=== PATIENT | male | born 1950 | race Caucasian/White ===

== ENCOUNTER 2021-04-01 06:20 | Observation (INO) | payer OTHER ==
[2021-03-30 10:14] LABS: HEMATOCRIT 39.4 % (42-54); LYMPHOCYTES % (AUTO) 34.9 % (21.0-51.0); MEAN CORPUSCULAR HEMOGLOBIN 30.6 pg (27.0-33.0); MEAN CORPUSCULAR HGB CONC 33.8 g/dL (32.0-36.0); MEAN CORPUSCULAR VOLUME 90.8 fL (79-99); MONOCYTES % (AUTO) 8.4 % (3.0-13.0); NEUTROPHILS % (AUTO) 50.3 % (40.0-77.0); PLATELET COUNT (AUTO) 279 K/uL (130-400); RED BLOOD CELL COUNT(AUTO) 4.34 MIL/uL (4.50-6.20); RED CELL DISTRIBUTION WIDTH 13.8 % (11.0-15.5); WHITE BLOOD COUNT (AUTO) 7.3 K/uL (4.8-10.8)
[2021-03-30 10:25] LABS: POTASSIUM 4.1 mmol/L (3.5-5.1)
[2021-03-30 10:26] LABS: INR 0.94 (0.85-1.15); PROTHROMBIN TIME 10.3 SEC (9.6-11.6)
[2021-03-30 10:32] LABS: APPEARANCE,URINE Clear (CLEAR); BILIRUBIN,URINE Negative (NEGATIVE); COLOR,URINE Yellow (YELLOW); GLUCOSE, URINE (UA) Negative (NEGATIVE); KETONES,URINE Negative (NEGATIVE); LEUKOCYTE ESTERASE ,URINE Negative (NEGATIVE); NITRATE,URINE Negative (NEGATIVE); OCCULT BLOOD,URINE Negative (NEGATIVE); PH,URINE 5.5 (5.0-8.0); PROTEIN,URINE Negative (NEGATIVE)
[2021-03-31 12:38] VITALS: BP 175/88
[~2021-04-01] VITALS: Ht 180.3 cm; Wt 108.0 kg
[2021-04-01] VITALS (26 sets, daily range): BP systolic 116–157; BP diastolic 57–81
[~2021-04-01 06:20] MED LIST: AMLO2.5T4 PO; BUDE10.2 IH; TRAM-355 PO
[2021-04-01] MEDS ORDERED: CEFAZOLIN SODIUM 1 GM VIAL ONE ×2 (06:47→09:32)
[2021-04-01] MEDS ORDERED: LACTATED RINGERS 1000ML 1,000 ML IV ONE (06:47)
[2021-04-01] MEDS ORDERED: ALBUTEROL INHALER 90MCG/INH IH ONE (09:09)
[2021-04-01] MEDS ORDERED: TRANEXAMIC ACID 1000MG/10ML ONE ×2 (09:32→14:23)
[2021-04-01] MEDS ORDERED: NEOSTIGMINE 5MG/5ML SYR IV ONE (10:15)
[2021-04-01] MEDS ORDERED: PROPOFOL 10 MG/ML 20ML VIAL IV ONE (10:15)
[2021-04-01] MEDS ORDERED: DEXAMETHASONE SOD PHOSPHATE 10MG/ML 1ML VIAL ONE (10:15)
[2021-04-01] MEDS ORDERED: LIDOCAINE PF 100MG/5ML (2%) SYRINGE 5ML ONE (10:15)
[2021-04-01] MEDS ORDERED: FENTANYL CITRATE PF 50 MCG/1 ML 2ML VIAL ONE (10:15)
[2021-04-01] MEDS ORDERED: MIDAZOLAM HCL 1 MG/ML 2ML VIAL ONE (10:15)
[2021-04-01] MEDS ORDERED: SUCCINYLCHOLINE CHLORIDE 20 MG/ML 10 ML VIAL ONE (10:15)
[2021-04-01] MEDS ORDERED: ONDANSETRON 4MG INJ ONE (10:15)
[2021-04-01] MEDS ORDERED: GLYCOPYRROLATE 1 MG/5 ML SYRINGE ONE (10:15)
[2021-04-01] MEDS ORDERED: ROCURONIUM 10MG/1ML SYR 10 MG/ML ML ONE (10:16)
[2021-04-01] MEDS ORDERED: ROPIVACAINE 0.5% 5MG/ML 30ML IJ ONE (10:35)
[2021-04-01] MEDS ORDERED: PHENYLEPHRINE HCL 10 MG/ML 1ML VIAL IV ONE ×2 (10:53→13:40)
[2021-04-01] MEDS ORDERED: CEFAZOLIN SODIUM 2 GM VIAL IV ONE (11:00)
[2021-04-01] MEDS ORDERED: ATROPINE 1MG SYG IVP ONE (11:36)
[2021-04-01] MEDS ORDERED: EPHEDRINE SULFATE 50 MG/ML AMPULE ONE (13:40)
[2021-04-01] MEDS ORDERED: OXYCODONE HCL 5 MG TAB PO PRN (14:30)
[2021-04-01] MEDS ORDERED: KETOROLAC 15MG/ML VIAL (15MG/ML) IV PRN (14:30)
[2021-04-01] MEDS ORDERED: KCL 20 MEQ ERTAB PO PRN (14:30)
[2021-04-01] MEDS ORDERED: CALCIUM CARB 500MG PO PRN (14:30)
[2021-04-01] MEDS ORDERED: POTASSIUM CHLORIDE 10% ELIXIR 20 MEQ/15 ML UDCUP PO PRN (14:30)
[2021-04-01] MEDS ORDERED: DiphenhydrAMINE HCL 50 MG/ML VIAL IVP PRN (14:30)
[2021-04-01] MEDS ORDERED: LIDOCAINE HCL-MPF 1% 2ML VIAL IV PRN (14:30)
[2021-04-01] MEDS ORDERED: POTASSIUM CHLORIDE 20MEQ/100ML 100 ML IV PRN (14:30)
[2021-04-01] MEDS ORDERED: TRAMADOL HCL 50 MG TABLET PO PRN (14:30)
[2021-04-01] MEDS ORDERED: FE FUMARATE/FA/MV, MIN COMB#15 1 TAB PO PRN (14:30)
[2021-04-01] MEDS ORDERED: TEMAZEPAM 15 MG CAPSULE PO PRN (14:30)
[2021-04-01] MEDS: ACETAMINOPHEN 500 MG TABLET PO SCH ×2 (14:30→21:11)
[2021-04-01] MEDS: 0.9%NACL 1000ML 1,000 ML IV SCH (14:30)
[2021-04-01] MEDS ORDERED: MEPERIDINE-PF 25 MG/ML SYG ONE (15:17)
[2021-04-01] MEDS: ONDANSETRON 4MG INJ IVP PRN ×2 (15:30→19:05)
[2021-04-01] MEDS: CEFAZOLIN SODIUM 1 GM VIAL IVP SCH (19:54)
[2021-04-01] MEDS: CELECOXIB 200 MG CAP PO SCH (20:59)
[2021-04-01] MEDS: PREGABALIN 25 MG CAP PO SCH (20:59)
[2021-04-01] MEDS: FAMOTIDINE 20MG TAB PO SCH (20:59)
[2021-04-01] MEDS ORDERED: ASPIRIN 81 MG EC TAB PO ONE (21:00)
[2021-04-02] MEDS: 0.9%NACL 1000ML 1,000 ML IV SCH (00:30)
[2021-04-02 03:43] LABS: HEMATOCRIT 32.6 % (42-54); MEAN CORPUSCULAR HEMOGLOBIN 30.4 pg (27.0-33.0); MEAN CORPUSCULAR HGB CONC 32.5 g/dL (32.0-36.0); MEAN CORPUSCULAR VOLUME 93.4 fL (79-99); RED BLOOD CELL COUNT(AUTO) 3.49 MIL/uL (4.50-6.20); RED CELL DISTRIBUTION WIDTH 13.9 % (11.0-15.5); WHITE BLOOD COUNT (AUTO) 8.3 K/uL (4.8-10.8)
[2021-04-02 04:20] VITALS: BP 128/67
[2021-04-02] MEDS: CEFAZOLIN SODIUM 1 GM VIAL IVP SCH (04:23)
[2021-04-02] MEDS: ACETAMINOPHEN 500 MG TABLET PO SCH ×3 (04:23→20:23)
[2021-04-02 04:26] LABS: CREATININE 1.2 mg/dL (0.5-1.5); POTASSIUM 4.2 mmol/L (3.5-5.1)
[2021-04-02] MEDS: PREGABALIN 25 MG CAP PO SCH ×2 (07:57→20:22)
[2021-04-02] MEDS: FAMOTIDINE 20MG TAB PO SCH ×2 (07:57→20:22)
[2021-04-02] MEDS: POLYETHYLENE GLYCOL 3350 17 GM POWD.PACK PO SCH (07:58)
[2021-04-02] MEDS: OXYCODONE HCL 5 MG TAB PO PRN (07:58)
[2021-04-02] MEDS: CELECOXIB 200 MG CAP PO SCH ×2 (07:58→20:22)
[2021-04-02 08:00] VITALS: BP 134/69
[2021-04-02] MEDS ORDERED: TRAMADOL /APAP 37.5MG/325MG TAB PO PRN (11:00)
[2021-04-02 12:00] VITALS: BP 122/59
[2021-04-02] MEDS: SYMBICORT 160-4.5 MCG INHALER IH SCH ×2 (13:00→20:23)
[2021-04-02 16:00] VITALS: BP 121/81
[2021-04-02 19:00] VITALS: BP 143/66
[2021-04-02] MEDS ORDERED: AMLODIPINE 2.5 MG TAB PO SCH (21:00)
[2021-04-03] VITALS: BP 151/65
[2021-04-03 04:00] VITALS: BP 146/63
[2021-04-03] MEDS: OXYCODONE HCL 5 MG TAB PO PRN ×2 (04:31→08:36)
[2021-04-03] MEDS: ACETAMINOPHEN 500 MG TABLET PO SCH (04:31)
[2021-04-03] MEDS: CELECOXIB 200 MG CAP PO SCH (08:35)
[2021-04-03] MEDS: PREGABALIN 25 MG CAP PO SCH (08:35)
[2021-04-03] MEDS: POLYETHYLENE GLYCOL 3350 17 GM POWD.PACK PO SCH (08:35)
[2021-04-03] MEDS: FAMOTIDINE 20MG TAB PO SCH (08:35)
[2021-04-03 08:36] VITALS: BP 156/58
[2021-04-03] MEDS: SYMBICORT 160-4.5 MCG INHALER IH SCH (09:00)
[2021-04-03 11:34] VITALS: BP 148/71
[2021-04-03] MEDS ORDERED: HYDR-4060 PO (13:19)
[2021-04-04] MEDS ORDERED: BISACODYL 10 MG SUPP.RECT RC PRN (14:30)
== END 2021-04-03 14:14 | disposition home or self-care (01) ==
LOC: DAH 06:20 → DAHIP 06:21 → DAH 06:21 → 4AH 16:11
PROVIDERS: ADMIT Orthopaedic Surgery; ATTEND Orthopaedic Surgery
DX: M75.101 Unspecified rotator cuff tear or rupture of right shoulder, not specified as traumatic (principal); Z20.822 Contact with and (suspected) exposure to COVID-19; M19.011 Primary osteoarthritis, right shoulder; F17.200 Nicotine dependence, unspecified, uncomplicated; Z96.611 Presence of right artificial shoulder joint; Z79.899 Other long term (current) drug therapy; Z98.890 Other specified postprocedural states
CPT/HCPCS: 23472; 36415 ×2; 73030; 80048 ×2; 81003; 85025; 85027; 85610; 87088; 87635; 87641; 93005; 96374; 96375; 96376; 97116; 97161; 97530 ×3; A4215; A4221; A4222; A4223; A4510; A4663; A5120; C9803; G0378 ×44; J0330; J0461; J0690 ×5; J1100; J1885; J2001; J2175; J2250; J2370 ×2; J2405 ×2; J2704; J2710; J2795; J3010; J3490 ×4; J7120

== ENCOUNTER 2021-09-23 06:25 | Day surgery (SDC) | payer OTHER ==
[2021-09-21 09:50] VITALS: BP 146/68
[2021-09-21 10:05] LABS: BASOPHILS % (AUTO) 0.8 % (0.0-5.0); EOSINOPHILS % (AUTO) 7.3 % (0.0-8.0); LYMPHOCYTES % (AUTO) 36.9 % (21.0-51.0); MEAN CORPUSCULAR HEMOGLOBIN 29.2 pg (27.0-33.0); MEAN CORPUSCULAR HGB CONC 32.6 g/dL (32.0-36.0); MEAN CORPUSCULAR VOLUME 89.7 fL (79-99); MONOCYTES % (AUTO) 8.2 % (3.0-13.0); NEUTROPHILS % (AUTO) 46.6 % (40.0-77.0); PLATELET COUNT (AUTO) 275 K/uL (130-400); RED BLOOD CELL COUNT(AUTO) 4.35 MIL/uL (4.50-6.20); RED CELL DISTRIBUTION WIDTH 15.3 % (11.0-15.5)
[2021-09-21 10:16] LABS: CREATININE 1.1 mg/dL (0.5-1.5); POTASSIUM 4.3 mmol/L (3.5-5.1)
[~2021-09-23] VITALS: Ht 180.3 cm; Wt 110.4 kg
[2021-09-23] VITALS (12 sets, daily range): BP systolic 113–196; BP diastolic 44–81
[~2021-09-23 06:25] MED LIST changes: +ALBU2.5V2 IH; -TRAM-355 PO; +TYLENOL PM PO
[2021-09-23] MEDS ORDERED: LACTATED RINGERS 1000ML 1,000 ML IV ONE (07:24)
[2021-09-23] MEDS ORDERED: CEFAZOLIN SODIUM 1 GM VIAL IVP ONE (08:00)
[2021-09-23] MEDS ORDERED: ALBUTEROL INHALER 90MCG/INH IH ONE (08:33)
[2021-09-23] MEDS ORDERED: ROCURONIUM 10MG/1ML SYR 10 MG/ML ML ONE (08:42)
[2021-09-23] MEDS ORDERED: LIDOCAINE PF 100MG/5ML (2%) SYRINGE 5ML ONE (08:42)
[2021-09-23] MEDS ORDERED: MIDAZOLAM HCL 1 MG/ML 2ML VIAL ONE (08:42)
[2021-09-23] MEDS ORDERED: SUCCINYLCHOLINE CHLORIDE 20 MG/ML 10 ML VIAL ONE (08:42)
[2021-09-23] MEDS ORDERED: NEOSTIGMINE 5MG/5ML SYR IV ONE (08:42)
[2021-09-23] MEDS ORDERED: FENTANYL CITRATE PF 50 MCG/1 ML 2ML VIAL ONE (08:42)
[2021-09-23] MEDS ORDERED: GLYCOPYRROLATE 1 MG/5 ML SYRINGE ONE (08:42)
[2021-09-23] MEDS ORDERED: ONDANSETRON 4MG INJ ONE (08:42)
[2021-09-23] MEDS ORDERED: DEXAMETHASONE SOD PHOSPHATE 10MG/ML 1ML VIAL ONE (08:42)
[2021-09-23] MEDS ORDERED: PROPOFOL 10 MG/ML 20ML VIAL IV ONE (08:42)
[2021-09-23] MEDS ORDERED: CEFAZOLIN SODIUM 2 GM VIAL IV ONE (09:00)
[2021-09-23] MEDS ORDERED: EPINEPHRINE 1 MG/ML 30ML VIAL IJ ONE ×2 (09:30→10:34)
[2021-09-23] MEDS ORDERED: MEPERIDINE-PF 25 MG/ML SYG ONE (11:00)
[2021-09-23] MEDS ORDERED: ACET-2079 PO (11:16)
[2021-09-23] MEDS ORDERED: CEPH500B PO (11:16)
[2021-09-23] MEDS ORDERED: IBUP-2070 PO (11:16)
[2021-09-23] MEDS ORDERED: ROPIVACAINE 0.5% 5MG/ML 30ML IJ ONE (11:24)
== END 2021-09-23 13:05 | disposition home or self-care (01) ==
LOC: DAH 06:25
PROVIDERS: ATTEND Orthopaedic Surgery
DX: M75.112 Incomplete rotator cuff tear or rupture of left shoulder, not specified as traumatic (principal); M75.42 Impingement syndrome of left shoulder; M19.012 Primary osteoarthritis, left shoulder; G89.29 Other chronic pain; E66.01 Morbid (severe) obesity due to excess calories; I10 Essential (primary) hypertension; J45.909 Unspecified asthma, uncomplicated; Z98.890 Other specified postprocedural states; Z79.899 Other long term (current) drug therapy; Z79.01 Long term (current) use of anticoagulants
CPT/HCPCS: 29824; 29826; 36415; 64415; 76942; 80048; 85025; 87635; A4215; A4221; A4222; A4223; A4565; A4649 ×2; A4663; A5120; A6204; C9803; G0168; J0171 ×2; J0330; J0690 ×2; J1100; J2001; J2175; J2250; J2405; J2704; J2710; J2795; J3010; J3490; J7030; J7120